=== PATIENT | female | born 1965 | race Hispanic/Latino ===

== ENCOUNTER 2023-11-10 07:49 | Day surgery (SDC) | payer OTHER ==
[~2023-11-10] VITALS: Ht 167.6 cm; Wt 66.2 kg
[~2023-11-10 07:49] MED LIST: PROBIOTI2
[2023-11-10] MEDS ORDERED: LACTATED RINGER'S 1,000 ML IV ONE (07:51)
[2023-11-10 12:06] VITALS: BP 132/79
[2023-11-10] MEDS ORDERED: PROPOFOL 500 MG/50 ML VIAL IV ONE (12:39)
[2023-11-10] MEDS ORDERED: GLYCOPYRROLATE 0.2 MG/ML IV ONE (12:39)
[2023-11-10] MEDS ORDERED: LIDOCAINE HCL 2% 2ML SDV IV ONE (12:39)
== END 2023-11-10 10:13 | disposition home or self-care (01) ==
LOC: ENDO 07:49 → ORM 13:15 → ENDO 13:15
PROVIDERS: ATTEND Internal Medicine Gastroenterology
DX: K57.30 Diverticulosis of large intestine without perforation or abscess without bleeding (principal); K64.8 Other hemorrhoids; F41.9 Anxiety disorder, unspecified